=== PATIENT | female | born 1980 | race Caucasian/White ===

== ENCOUNTER 2018-07-15 17:18 | Emergency (ER) | payer MEDICAID ==
[~2018-07-15] VITALS: Ht 160 cm; Wt 99.1 kg
[~2018-07-15 17:18] MED LIST: CEPH-571 PO; HYDR-4383 PO; SACC250C PO
[2018-07-15] MEDS ORDERED: ALBU8.5H8 IH (17:41)
[2018-07-15] MEDS ORDERED: METH4TAB81 PO (17:41)
[2018-07-15] MEDS ORDERED: AZIT250T83 PO (17:41)
[2018-07-15 17:46] VITALS: BP 136/78
== END 2018-07-15 17:56 | disposition home or self-care (01) ==
LOC: ER 17:18
DX: J20.9 Acute bronchitis, unspecified (principal); Z88.0 Allergy status to penicillin; Z79.899 Other long term (current) drug therapy; Z98.51 Tubal ligation status
CPT/HCPCS: 99283

== ENCOUNTER 2020-03-30 14:52 | Emergency (ER) | payer SELFPAY ==
[~2020-03-30] VITALS: Ht 160 cm; Wt 102.0 kg
[~2020-03-30 14:52] MED LIST changes: +ALBU8.5H8 IH; +METH4TAB81 PO
[2020-03-30 15:17] VITALS: BP 131/82
[2020-03-30] MEDS ORDERED: CEPH250T PO (15:37)
[2020-03-30] MEDS ORDERED: NAPR-56 PO (15:37)
[2020-03-30] MEDS ORDERED: HYDR-4383 PO (15:37)
== END 2020-03-30 16:05 | disposition home or self-care (01) ==
LOC: ER 14:52
DX: K08.89 Other specified disorders of teeth and supporting structures (principal); Z98.51 Tubal ligation status; Z88.0 Allergy status to penicillin; Z88.1 Allergy status to other antibiotic agents; Z88.8 Allergy status to other drugs, medicaments and biological substances; Z79.899 Other long term (current) drug therapy
CPT/HCPCS: 99283